=== PATIENT | female | born 1995 | race Caucasian/White ===

== ENCOUNTER → 2022-08-10 | Outpatient (CLI) | payer BC, SELFPAY | END | disposition home or self-care (01) | LOC: LABSPEC 11:09 | PROVIDERS: Referring Provider Physician Assistant; Visit Provider Physician Assistant | DX: L05.91 Pilonidal cyst without abscess (principal) | CPT/HCPCS: 87070; 87075; 87077; 87186; 87205 ==

== ENCOUNTER → 2022-08-17 | Outpatient (CLI) | payer BC, SELFPAY ==
[2022-08-17 13:23] LABS: Vitamin D,25 Hydroxy 25.2 ng/mL
[2022-08-17 13:53] LABS: ALB/GLOB Ratio 1.1 RATIO (0.9-2.4); AST(SGOT) 105 U/L (15-37); Alanine Aminotransfer ALT/SGPT 149 U/L (13-56); Albumin, Serum 4.1 g/dL (3.2-5.0); Alkaline Phosphatase 87 U/L (45-117); Anion Gap 5 (5-15); BUN 10 mg/dL (7-18); Calcium,Total 9.6 mg/dL (8.5-10.1); Chloride 105 mmol/L (98-107); Cholesterol 176 mg/dL (200); Creatinine, Serum 0.77 mg/dL (0.55-1.02); EST Glomerular Filtration Rate 96 mL/min (>60); Est Glom Filt Rate - Afr Amer 116 mL/min (>60); Globulin 3.9 g/dL (2.2-4.2); Glucose 105 mg/dL (74-106); High Density Lipoprotein 41 mg/dL; Potassium 3.7 mmol/L (3.5-5.1); Prolactin 5.6 ng/mL; Sodium Level 134 mmol/L (136-145); Thyroid Stim Hormone (TSH) 3.18 uIU/mL (0.358-3.74); Triglycerides 148 mg/dL; Very Low Density Lipoprotein 30 mg/dL (5-40)
[2022-08-19 04:07] LABS: Testosterone Free 6.2 pg/mL (0.0-4.2)
[2022-08-22 12:08] LABS: 17-Hydroxyprogesterone 65 ng/dL (.)
== END | disposition home or self-care (01) ==
LOC: PAVLAB 11:40
PROVIDERS: Referring Provider Obstetrics & Gynecology; Visit Provider Obstetrics & Gynecology
DX: N91.4 Secondary oligomenorrhea (principal)
CPT/HCPCS: 36415; 80053; 80061; 82306; 82627; 83036; 83498; 84146; 84402; 84443; 82626

== ENCOUNTER 2022-11-13 07:34 | Outpatient (RCR) | payer BC, SELFPAY | END 2022-11-27 23:59 | LOC: NS 07:34 | PROVIDERS: Referring Provider Obstetrics & Gynecology; Visit Provider Obstetrics & Gynecology | DX: Z71.3 Dietary counseling and surveillance (principal); E66.01 Morbid (severe) obesity due to excess calories; E28.2 Polycystic ovarian syndrome; Z68.43 Body mass index [BMI] 50.0-59.9, adult | CPT/HCPCS: 97802 ==

== ENCOUNTER → 2023-01-19 | Outpatient (CLI) | payer BC, SELFPAY ==
--- NOTE | 2023-01-19 13:36 | US_ITS ---
STUDY: ULTRASOUND OF THE FEMALE PELVIS - COMPLETE REASON FOR EXAM: Female, 27 years old. secondary oligomenorrhea -- PCOS LMP: 01/15/2023 TECHNIQUE: Transabdominal and Transvaginal TECHNICAL QUALITY: Adequate. COMPARISON: None. FINDINGS: The uterus is anteverted and is in a midline position. The uterus measures 7.5 x 4.4 x 3.3 cm. Normal uterine cervix. The endometrium measures 3.3 mm in thickness, and is hyperechoic. There is no demonstrated endometrial mass. There is no demonstrated myometrial mass. I.U.D. - The patient does not have an I.U.D. The right ovary is visualized. The right ovary measures 4.6 x 3.1 x 2.6 cm. There are multiple follicles of the right ovary without a dominant cyst. Ovarian stroma is mildly hyperechoic. There is no visualized right adnexal mass or complex lesion. There is normal arterial and normal venous vascularity. The left ovary is visualized. The left ovary measures 4.4 x 2.9 x 2.6 cm. There are multiple follicles of the left ovary without a dominant cyst. The ovarian stroma is mildly hyperechoic. There is no visualized left adnexal mass or complex lesion. There is normal arterial and normal venous vascularity. There is no fluid in the cul-de-sac. Visualized urinary bladder is unremarkable. Polycystic ovary disease: Yes. US/Pelvic (Non ) IMPRESSION: Enlargement of the ovaries with multiple ovarian follicles and echogenic stroma compatible with history provided of polycystic ovarian syndrome. Electronically Signed: Shailesh Fountain MD ([place]) at 19:02 EDT ,
== END | disposition home or self-care (01) ==
LOC: US 13:35
PROVIDERS: Referring Provider Obstetrics & Gynecology; Visit Provider Obstetrics & Gynecology
DX: N91.4 Secondary oligomenorrhea (principal)
CPT/HCPCS: 76830; 76856

== ENCOUNTER → 2023-01-19 | Outpatient (CLI) | payer BC, SELFPAY ==
[2023-01-19 15:00] LABS: T4 Free Direct 0.92 ng/dL (0.76-1.46)
== END | disposition home or self-care (01) ==
LOC: LAB 14:21
PROVIDERS: Obstetrics & Gynecology; Referring Provider Obstetrics & Gynecology; Visit Provider Obstetrics & Gynecology
DX: N91.4 Secondary oligomenorrhea (principal)
CPT/HCPCS: 36415; 84439

== ENCOUNTER → 2023-03-13 | Outpatient (CLI) | payer OTHER, SELFPAY ==
--- NOTE | 2023-03-13 10:58 | EKG12_ITS ---
Test Reason : MEDICATION Blood Pressure : / mmHG Vent. Rate : 083 BPM Atrial Rate : 083 BPM P-R Int : 144 ms QRS Dur : 068 ms QT Int : 350 ms P-R-T Axes : 043 027 025 degrees QTc Int : 411 ms Normal sinus rhythm Normal ECG Confirmed by CARLOS ENRIQUE BELTRAN, MURRAY ([id number]), video news editor MARTINA FARR ([id number]) on 03/21/2023 10:22:38 AM Referred By: Herminia Bryant Confirmed By:MURRAY MONACO MD
== END | disposition home or self-care (01) ==
LOC: PSN 10:58
PROVIDERS: PCP Physician Assistant Medical; Referring Provider Obstetrics & Gynecology; Visit Provider Obstetrics & Gynecology
DX: I10 Essential (primary) hypertension (principal); Z31.89 Encounter for other procreative management
CPT/HCPCS: 93005